=== PATIENT | female | born 1945 | race American Indian/Alaskan Native ===

== ENCOUNTER 2023-07-11 12:03 | Outpatient (CLI) | payer OTHER | END 2023-07-11 12:10 | disposition home or self-care (01) | LOC: RAD 12:03 | PROVIDERS: ATTEND General Practice | DX: M25.561 Pain in right knee (principal); M25.562 Pain in left knee; E11.8 Type 2 diabetes mellitus with unspecified complications; M25.571 Pain in right ankle and joints of right foot; M25.572 Pain in left ankle and joints of left foot; B20 Human immunodeficiency virus [HIV] disease; M25.551 Pain in right hip; M25.552 Pain in left hip ==

== ENCOUNTER 2024-11-01 14:21 | Inpatient (IN) | payer OTHER ==
[~2024-11-01] VITALS: Ht 157.5 cm; Wt 86.2 kg
[2024-11-01] MEDS ORDERED: METFORMIN HCL1000 M2 PO (14:45)
[2024-11-01] MEDS ORDERED: TRIUMEQ TABLET1 EACH PO (14:45)
[2024-11-01] MEDS ORDERED: LOSARTAN POTAS100 MG PO (14:45)
--- NOTE | 2024-11-01 14:45 | NUR ---
PTE ALERTA Y CON PERIODOS DE DESORIENTACION EN COMPANIA DE PARAMEDICOS Y FAMILIAR QUIEN REFIERE TRAER A PTE POR RETENCION URINARIA.
[2024-11-01] MEDS ORDERED: 0.9 % SODIUM CHLORIDE 1,000 ML IV SCH (17:00)
[2024-11-01] MEDS ORDERED: PIPERACILLIN/TAZOBACTAM SODIUM 3.375 GM VIAL IV ONE (17:00)
--- NOTE | 2024-11-01 18:00 | NUR ---
SE EDUCA A PTE SOBRE TX MEDICO, SE JOEY MUESTRAS DE LABORATORIO UTILIZANDO MEDIDAS ASEPTICAS. SE COLOCA H/L MIGUEL DE EDEMA. SE CATETERIZA A PTE UTILIZANDO MEDIDAS ASEPTICAS Y ESTERILES.
[2024-11-01 18:15] LABS: URINE APPEARANCE Turbid; URINE BILIRRUBIN Small (NEGATIVE); URINE BLOOD Large; URINE COLOR Dark Yellow; URINE GLUCOSE Negative (NEGATIVE); URINE KETONE Trace (NEGATIVE); URINE LEUKOCYTE Large; URINE NITRATE Negative
[2024-11-01] MEDS ORDERED: KETOROLAC TROMETHAMINE 30 MG VIAL IV ONE (18:15)
[2024-11-01 18:16] LABS: URINE CAST 9.23 uL (0.0-1.40); URINE EPITHELIAL CELLS 90.9 uL (0.0-38.8); URINE RBC 570.9 uL (0.0-20.8)
[2024-11-01 18:37] LABS: URINE BACTERIA > 9821.5 uL (0.0-1933); URINE PROTEIN 300 (NEGATIVE); URINE WBC > 5548.3 uL (0.0-23.2)
[2024-11-01 19:23] LABS: BASO % 0.2 % (0.1-1.2); EOS # 0.04 (0.04-0.54); EOS % 0.2 % (0.7-7.0); HEMOGLOBIN 9.4 g/dL (11.2-15.7); LYMPH # 0.79 (1.18-3.74); LYMPH % 3.6 % (19.3-53.1); MONO % 8.1 % (4.7-12.5); NEUT # 17.11 (1.56-6.13); NEUT % 77.4 % (34.0-71.1); RED BLOOD COUNT 3.24 M/uL (3.93-5.22); RED CELL DISTRIBUTION WIDTH 14.5 % (11.6-14.4)
[2024-11-01 19:31] LABS: HEMATOCRIT 26.9 % (34.1-44.9); PLATELET COUNT 105 K/uL (163-369)
[2024-11-01 19:46] LABS: ALBUMIN 2.6 gm/dL (3.4-5.0); BILIRUBIN TOTAL 0.9 mg/dL (0.3-1.2); CALCIUM 8.5 mg/dL (8.5-10.1); CREATININE SERUM 2.01 mg/dL (0.55-1.02); GFR 23.83; POTASSIUM 3.56 mEq/L (3.5-5.1); TOTAL PROTEIN 6.6 gm/dL (6.4-8.2)
[2024-11-02] MEDS ORDERED: TAMSULOSIN HCL 0.4 MG CAP PO SCH (00:09)
[2024-11-02] MEDS ORDERED: ACETAMINOPHEN 500 MG GEL..CAP PO PRN (00:15)
[2024-11-02] MEDS ORDERED: DEXTROSE 50 % IN WATER 0.5 G/ML VIAL IV PRN (00:15)
[2024-11-02] MEDS ORDERED: 0.9 % SODIUM CHLORIDE 1,000 ML IV SCH (00:15)
[2024-11-02] MEDS ORDERED: INSULIN LISPRO 1,000 UNIT/10 ML UNITS SUBCUTANEO PRN (00:15)
[2024-11-02] MEDS ORDERED: ONDANSETRON HCL 4 MG in 0.9 % SODIUM CHLORIDE 50 ML IV PRN (00:15)
[2024-11-02] MEDS ORDERED: TAMSULOSIN HCL 0.4 MG CAP PO ONE (04:17)
[2024-11-02] MEDS ORDERED: PIPERACILLIN/TAZOBACTAM SODIUM 3.375 GM VIAL IV ONE (04:18)
[2024-11-02 05:05] VITALS: BP 95/64; O2SAT 98
[2024-11-02 05:21] LABS: INR 1.14; PARTIAL THROMBOPLASTIN TIME 29.9 SECONDS (22.0-34.0); PROTHROMBIN TIME 12.3 SECONDS (9.0-11.5)
[2024-11-02] MEDS ORDERED: PIPERACILLIN/TAZOBACTAM SODIUM 3.375 GM in DEXTROSE 5 % IN WATER 100 ML IV SCH (06:00)
[2024-11-02] MEDS ORDERED: LOSARTAN POTASSIUM 50 MG TABLET PO SCH (09:00)
[2024-11-02] MEDS ORDERED: FAMOTIDINE/PF 20 MG in 0.9 % SODIUM CHLORIDE 8 ML IV PUSH SCH (09:00)
[2024-11-02] MEDS ORDERED: PANTOPRAZOLE SODIUM 40 MG/VIAL VIAL IV PUSH SCH (09:57)
[2024-11-02] MEDS ORDERED: MEROPENEM 1,000 MG in 0.9 % SODIUM CHLORIDE 100 ML IV SCH (10:00)
[2024-11-02] MEDS ORDERED: NOREPINEPHRINE BITARTRATE 8 MG in DEXTROSE 5 % IN WATER 250 ML IV SCH (10:00)
[2024-11-02] MEDS ORDERED: NOREPINEPHRINE BITARTRATE 1 MG/ML AMPUL IV ONE (10:27)
[2024-11-02 15:52] VITALS: BP 125/69; O2SAT 96
[2024-11-02 23:00] VITALS: BP 145/77; O2SAT 99
[2024-11-03] VITALS (9 sets, daily range): BP systolic 122–157; BP diastolic 57–77; O2SAT 95–100
[2024-11-03] MEDS ORDERED: MEROPENEM 500 MG in 0.9 % SODIUM CHLORIDE 50 ML IV SCH ×2 (05:00→17:00)
[2024-11-03 07:01] LABS: BASO % 0.3 % (0.1-1.2); EOS # 0.11 (0.04-0.54); EOS % 0.9 % (0.7-7.0); HEMATOCRIT 28.1 % (34.1-44.9); HEMOGLOBIN 9.4 g/dL (11.2-15.7); LYMPH # 0.91 (1.18-3.74); LYMPH % 7.3 % (19.3-53.1); MEAN CORPUSCULAR HEMOGLOBIN 28.1 pg (25.6-32.2); MONO # 0.78 (0.24-0.82); MONO % 6.3 % (4.7-12.5); NEUT # 10.57 (1.56-6.13); NEUT % 84.7 % (34.0-71.1); PLATELET COUNT 141 K/uL (163-369); RED BLOOD COUNT 3.34 M/uL (3.93-5.22); RED CELL DISTRIBUTION WIDTH 14.9 % (11.6-14.4)
[2024-11-03 07:47] LABS: ALBUMIN 2.2 gm/dL (3.4-5.0); BILIRUBIN TOTAL 0.44 mg/dL (0.3-1.2); CALCIUM 8.7 mg/dL (8.5-10.1); CREATININE SERUM 1.02 mg/dL (0.55-1.02); GFR 52.14; GLOBULINA 4.3 G/DL (2.4-3.5); MAGNESIUM 1.9 mg/dL (1.8-2.4); PHOSPHOROUS 3.1 mg/dL (2.5-4.9); POTASSIUM 3.8 mEq/L (3.5-5.1); TOTAL PROTEIN 6.5 gm/dL (6.4-8.2)
[2024-11-03 07:48] LABS: C-REACTIVE PROTEIN 15.1 MG/DL (0.00-0.29)
[2024-11-03 13:32] LABS: PROCALCITONIN 8.8 ng/ml (0.020-0.080)
[2024-11-03 14:34] LABS: CORTISOL 19.59 ug/dl
[2024-11-03] MEDS ORDERED: [UNRECOGNIZED DRUG - OTHER] PO SCH (15:49)
[2024-11-03] MEDS ORDERED: DOLUTEGRAVIR PO SCH (17:00)
[2024-11-03] MEDS ORDERED: LAMIVUDI PO SCH (17:00)
[2024-11-03] MEDS ORDERED: ABACAVIR PO SCH (17:00)
[2024-11-04 00:40] VITALS: BP 123/73; O2SAT 96
[2024-11-04 01:20] VITALS: O2SAT 100
[2024-11-04 04:35] VITALS: O2SAT 99
[2024-11-04 06:58] LABS: PH,URINE 5.5 (5.0-8.0); URINE APPEARANCE Turbid; URINE BILIRRUBIN Negative (NEGATIVE); URINE BLOOD Moderate; URINE COLOR Dark Yellow; URINE GLUCOSE Negative (NEGATIVE); URINE KETONE Trace (NEGATIVE); URINE LEUKOCYTE Large; URINE NITRATE Negative; URINE PROTEIN 30 (NEGATIVE)
[2024-11-04 07:01] LABS: URINE BACTERIA 4294.9 uL (0.0-1933); URINE CAST 6.62 uL (0.0-1.40); URINE EPITHELIAL CELLS 32.6 uL (0.0-38.8); URINE RBC 104.5 uL (0.0-20.8); URINE WBC 1640.9 uL (0.0-23.2)
[2024-11-04 07:16] LABS: URINE CRYSTALS FEW /HPF
[2024-11-04 08:08] VITALS: BP 121/71; O2SAT 98
[2024-11-04 09:02] VITALS: O2SAT 97
[2024-11-04 17:44] VITALS: BP 117/77; O2SAT 97
[2024-11-04] MEDS ORDERED: PIPERACILLIN/TAZOBACTAM SODIUM 3.375 GM in DEXTROSE 5 % IN WATER 100 ML IV SCH (18:00)
[2024-11-05] VITALS: BP 129/77; O2SAT 96
[2024-11-05 06:56] LABS: BASO % 0.5 % (0.1-1.2); EOS % 3.2 % (0.7-7.0); HEMATOCRIT 27.2 % (34.1-44.9); HEMOGLOBIN 9.3 g/dL (11.2-15.7); LYMPH # 1.37 (1.18-3.74); LYMPH % 14.8 % (19.3-53.1); MEAN CORPUSCULAR HEMOGLOBIN 28.8 pg (25.6-32.2); MONO # 0.94 (0.24-0.82); MONO % 10.2 % (4.7-12.5); NEUT # 6.48 (1.56-6.13); NEUT % 70.2 % (34.0-71.1); PLATELET COUNT 154 K/uL (163-369); RED BLOOD COUNT 3.23 M/uL (3.93-5.22); RED CELL DISTRIBUTION WIDTH 15.2 % (11.6-14.4)
[2024-11-05 07:19] LABS: CALCIUM 8.1 mg/dL (8.5-10.1); CREATININE SERUM 0.71 mg/dL (0.55-1.02); GFR 79.2; MAGNESIUM 1.5 mg/dL (1.8-2.4); PHOSPHOROUS 2.6 mg/dL (2.5-4.9); POTASSIUM 3.86 mEq/L (3.5-5.1)
[2024-11-05 07:25] LABS: ALBUMIN 2.1 gm/dL (3.4-5.0); BILIRUBIN TOTAL 0.75 mg/dL (0.3-1.2); CALCIUM 8.1 mg/dL (8.5-10.1); CREATININE SERUM 0.68 mg/dL (0.55-1.02); GFR 83.25; GLOBULINA 3.6 G/DL (2.4-3.5); POTASSIUM 3.8 mEq/L (3.5-5.1); TOTAL PROTEIN 5.7 gm/dL (6.4-8.2)
[2024-11-05 08:00] VITALS: BP 143/79; O2SAT 96
[2024-11-05] MEDS ORDERED: MAGNESIUM SULFATE IN WATER 50 ML IV NR (13:40)
[2024-11-05 16:35] VITALS: BP 139/76
[2024-11-06 01:40] VITALS: BP 131/71; O2SAT 94
[2024-11-06 07:52] LABS: ALBUMIN 2.1 gm/dL (3.4-5.0); BILIRUBIN TOTAL 0.64 mg/dL (0.3-1.2); CALCIUM 8.2 mg/dL (8.5-10.1); CREATININE SERUM 0.72 mg/dL (0.55-1.02); GFR 77.94; GLOBULINA 3.8 G/DL (2.4-3.5); MAGNESIUM 1.6 mg/dL (1.8-2.4); POTASSIUM 3.69 mEq/L (3.5-5.1); TOTAL PROTEIN 5.9 gm/dL (6.4-8.2)
[2024-11-06 08:44] VITALS: BP 149/80; O2SAT 97
[2024-11-06] MEDS ORDERED: MAGNESIUM SULFATE IN WATER 50 ML IV NR (12:20)
[2024-11-06 16:46] VITALS: BP 125/66
[2024-11-07 02:11] VITALS: BP 136/76; O2SAT 95
[2024-11-07 08:43] VITALS: BP 138/68; O2SAT 96
[2024-11-07 16:03] VITALS: BP 144/82
[2024-11-08 01:09] VITALS: BP 149/77; O2SAT 95
[2024-11-08 06:50] LABS: BASO % 0.7 % (0.1-1.2); EOS # 0.31 (0.04-0.54); EOS % 4.1 % (0.7-7.0); HEMATOCRIT 27.1 % (34.1-44.9); LYMPH # 1.28 (1.18-3.74); MEAN CORPUSCULAR HEMOGLOBIN 28.3 pg (25.6-32.2); MONO # 0.64 (0.24-0.82); MONO % 8.5 % (4.7-12.5); PLATELET COUNT 238 K/uL (163-369); RED BLOOD COUNT 3.18 M/uL (3.93-5.22)
[2024-11-08 07:50] VITALS: BP 156/70
[2024-11-08 07:55] LABS: ALBUMIN 1.9 gm/dL (3.4-5.0); BILIRUBIN TOTAL 0.51 mg/dL (0.3-1.2); CALCIUM 8.1 mg/dL (8.5-10.1); CREATININE SERUM 0.58 mg/dL (0.55-1.02); GFR 100.02; GLOBULINA 3.6 G/DL (2.4-3.5); MAGNESIUM 1.7 mg/dL (1.8-2.4); POTASSIUM 3.78 mEq/L (3.5-5.1); TOTAL PROTEIN 5.5 gm/dL (6.4-8.2)
[2024-11-08] MEDS ORDERED: DEXTROSE 5 % IN WATER 1,000 ML IV SCH (18:45)
[2024-11-08] MEDS ORDERED: Cyanocobalamin/Mecobalamin 1 TAB.SL SL NR (19:45)
[2024-11-08] MEDS ORDERED: VITAMIN B COMPLEX 1 EACH PO NR (19:45)
[2024-11-08] MEDS ORDERED: MAGNESIUM SULFATE/D5W 100 ML IV NR (19:45)
[2024-11-08] MEDS ORDERED: SOD FERRIC GLUC COMPLX/SUCROSE 62.5 MG/5 ML AMPUL IV ONE ×2 (20:18→20:20)
[2024-11-08] MEDS ORDERED: SOD FERRIC GLUC COMPLX/SUCROSE 125 MG in 0.9 % SODIUM CHLORIDE 100 ML IV SCH (21:00)
[2024-11-09] MEDS ORDERED: SODIUM CL 0.9% 100 ML IV.SOLN IV ONE (00:12)
[2024-11-09 00:30] VITALS: BP 158/75
[2024-11-09 04:57] LABS: HEMATOCRIT 27.1 % (34.1-44.9); HEMOGLOBIN 8.9 g/dL (11.2-15.7); MEAN CORPUSCULAR HEMOGLOBIN 27.5 pg (25.6-32.2); RED BLOOD COUNT 3.24 M/uL (3.93-5.22)
[2024-11-09 04:58] LABS: BASO % 0.6 % (0.1-1.2); EOS % 4.6 % (0.7-7.0); LYMPH # 1.36 (1.18-3.74); MONO % 6.6 % (4.7-12.5); NEUT # 6.06 (1.56-6.13); NEUT % 71.1 % (34.0-71.1); PLATELET COUNT 262 K/uL (163-369)
[2024-11-09 04:59] LABS: EOS # 0.39 (0.04-0.54); MONO # 0.56 (0.24-0.82)
[2024-11-09 05:34] LABS: ALBUMIN 1.9 gm/dL (3.4-5.0); BILIRUBIN TOTAL 0.33 mg/dL (0.3-1.2); CALCIUM 8.2 mg/dL (8.5-10.1); CREATININE SERUM 0.59 mg/dL (0.55-1.02); GFR 98.07; GLOBULINA 3.9 G/DL (2.4-3.5); MAGNESIUM 1.8 mg/dL (1.8-2.4); PHOSPHOROUS 2.7 mg/dL (2.5-4.9); POTASSIUM 3.65 mEq/L (3.5-5.1); TOTAL PROTEIN 5.8 gm/dL (6.4-8.2)
[2024-11-09 08:14] VITALS: BP 146/78
[2024-11-09] MEDS ORDERED: Cyanocobalamin/Mecobalamin 1 TAB.SL SL SCH (09:00)
[2024-11-09] MEDS ORDERED: VITAMIN B COMPLEX 1 EACH PO SCH (09:00)
[2024-11-09] MEDS ORDERED: FUROsemide 20 MG/2 ML VIAL IV SCH (13:15)
[2024-11-09] MEDS ORDERED: MAGNESIUM HYDROXIDE 30 ML BLIST.PACK PO NR (13:15)
[2024-11-09] MEDS ORDERED: LACTULOSE 20 G/30 ML BLIST.PACK PO NR (13:30)
[2024-11-09] MEDS ORDERED: MINERAL OIL 30 ML BLIST.PACK PO NR (13:30)
[2024-11-09 16:00] VITALS: BP 153/78; O2SAT 97
[2024-11-09] MEDS ORDERED: SOD FERRIC GLUC COMPLX/SUCROSE 62.5 MG in 0.9 % SODIUM CHLORIDE 50 ML IV SCH (21:00)
[2024-11-09 21:33] LABS: ob NEGATIVE (NEGATIVE)
[2024-11-10 00:37] VITALS: BP 138/78; O2SAT 98
[2024-11-10 08:00] VITALS: BP 127/63; O2SAT 94
[2024-11-10 16:55] VITALS: BP 141/87; O2SAT 98
[2024-11-10] MEDS ORDERED: PIPERACILLIN/TAZOBACTAM SODIUM 3.375 GM VIAL IV ONE (17:22)
[2024-11-10] MEDS ORDERED: SOD FERRIC GLUC COMPLX/SUCROSE 62.5 MG/5 ML AMPUL IV ONE (17:22)
[2024-11-11 00:34] VITALS: BP 145/66
[2024-11-11 06:53] LABS: BASO % 0.5 % (0.1-1.2); EOS # 0.23 (0.04-0.54); EOS % 2.6 % (0.7-7.0); HEMATOCRIT 34.8 % (34.1-44.9); HEMOGLOBIN 11.8 g/dL (11.2-15.7); LYMPH # 1.09 (1.18-3.74); LYMPH % 12.4 % (19.3-53.1); MEAN CORPUSCULAR HEMOGLOBIN 28.6 pg (25.6-32.2); MONO # 0.62 (0.24-0.82); MONO % 7.1 % (4.7-12.5); NEUT # 6.72 (1.56-6.13); NEUT % 76.5 % (34.0-71.1); PLATELET COUNT 270 K/uL (163-369); RED BLOOD COUNT 4.12 M/uL (3.93-5.22); RED CELL DISTRIBUTION WIDTH 15.4 % (11.6-14.4)
[2024-11-11 08:00] VITALS: BP 162/74; O2SAT 96
[2024-11-11 16:28] VITALS: BP 170/79; O2SAT 98
== END 2024-11-11 21:12 | disposition home or self-care (01) | DRG 871 ==
LOC: ER 14:21 → MEDI 11-02 00:11 → ICU-2 11-02 00:11 → SEC-K 11-02 00:11 → ICU-2 11-02 13:56 → SEC-K 11-03 12:05 → MEDI 11-03 16:30
PROVIDERS: General Practice; Internal Medicine; Internal Medicine Infectious Disease; ADMIT Internal Medicine; ATTEND Internal Medicine
PROC: BW21ZZZ Computerized Tomography (CT Scan) of Abdomen and Pelvis (ICD-10-PCS; principal; 2024-11-01)
PROC: 4A12X4Z Monitoring of Cardiac Electrical Activity, External Approach (ICD-10-PCS; 2024-11-03)
PROC: BT4JZZZ Ultrasonography of Kidneys and Bladder (ICD-10-PCS; 2024-11-04)
PROC: 30233N1 Transfusion of Nonautologous Red Blood Cells into Peripheral Vein, Percutaneous Approach (ICD-10-PCS; 2024-11-10)
DX: A41.9 Sepsis, unspecified organism (principal); R65.21 Severe sepsis with septic shock; N39.0 Urinary tract infection, site not specified; N17.8 Other acute kidney failure; I10 Essential (primary) hypertension; E11.9 Type 2 diabetes mellitus without complications; Z79.4 Long term (current) use of insulin

== ENCOUNTER 2025-01-24 13:46 | Emergency (ER) | payer OTHER ==
[~2025-01-24] VITALS: Ht 160 cm; Wt 86.2 kg
[~2025-01-24 13:46] MED LIST: LOSARTAN POTAS100 MG PO; METFORMIN HCL1000 M2 PO; TRIUMEQ TABLET1 EACH PO
[2025-01-24] MEDS ORDERED: FAMOTIDINE/PF 20 MG in 0.9 % SODIUM CHLORIDE 8 ML IV PUSH STA (16:29)
[2025-01-24] MEDS ORDERED: 0.9 % SODIUM CHLORIDE 1,000 ML IV SCH (16:30)
[2025-01-24] MEDS ORDERED: KETOROLAC TROMETHAMINE 30 MG VIAL IV ONE (16:30)
[2025-01-24] MEDS ORDERED: ONDANSETRON HCL 2 MG/ML VIAL IV ONE (16:30)
[2025-01-24 17:13] LABS: BASO % 0.2 % (0.1-1.2); EOS # 0.03 (0.04-0.54); EOS % 0.1 % (0.7-7.0); LYMPH # 0.70 (1.18-3.74); LYMPH % 3.4 % (19.3-53.1); MEAN PLATELET VOLUME 9.40 fl (9.4-12.4); MONO # 0.76 (0.24-0.82); MONO % 3.7 % (4.7-12.5); NEUT # 18.68 (1.56-6.13); NEUT % 91.2 % (34.0-71.1); RED CELL DISTRIBUTION WIDTH 15.9 % (11.6-14.4)
[2025-01-24 17:28] LABS: URINE APPEARANCE Turbid; URINE BILIRRUBIN Small (NEGATIVE); URINE BLOOD Large; URINE COLOR Dark Yellow; URINE GLUCOSE Negative (NEGATIVE); URINE KETONE 15 (NEGATIVE); URINE LEUKOCYTE Moderate; URINE NITRATE Negative; URINE UROBILINOGEN 1.0 E.U./dl
[2025-01-24 17:31] LABS: URINE CAST 2.53 uL (0.0-1.40); URINE EPITHELIAL CELLS 55.8 uL (0.0-38.8); URINE RBC 1507.5 uL (0.0-20.8); URINE WBC 719.6 uL (0.0-23.2)
[2025-01-24 17:35] LABS: COVID-19 AG NEGATIVE (NEGATIVE)
[2025-01-24 17:48] LABS: ALT/SGPT 43.0 U/L (12-78); AST/SGOT 46.0 U/L (15-37); BILIRUBIN TOTAL 0.49 mg/dL (0.3-1.2); BUN CREA RATIO 22.0 (7.0-25.0); CREATININE SERUM 1.07 mg/dL (0.55-1.02); GFR 49.34; GLOBULINA 4.4 G/DL (2.4-3.5); GLUCOSE FASTING 131.0 mg/dL (65-100); LDH 254.0 U/L (84-246); OSMOLALITY SERUM 287.0 MOSM/KG (275-295); PHOSPHOKINASE CREATININE 35.0 U/L (26-192)
[2025-01-24 17:49] LABS: URINE BACTERIA 9821.5 uL (0.0-1933); URINE PROTEIN 300 (NEGATIVE)
[2025-01-24] MEDS ORDERED: CEFTRIAXONE SODIUM 2,000 MG VIAL IV ONE (18:15)
== END 2025-01-24 20:35 | disposition designated cancer center or children's hospital (05) ==
LOC: ER 13:46
PROVIDERS: General Practice
DX: N20.1 Calculus of ureter (principal); R10.9 Unspecified abdominal pain; R11.2 Nausea with vomiting, unspecified; Z20.822 Contact with and (suspected) exposure to COVID-19

== ENCOUNTER 2025-02-13 14:33 | Emergency (ER) | payer OTHER ==
[~2025-02-13] VITALS: Ht 160 cm; Wt 86.2 kg
[2025-02-13] MEDS ORDERED: VITACEL TABLET1 EACH PO (14:48)
[2025-02-13] MEDS ORDERED: METFORMIN HCL500 M3 PO (14:48)
[2025-02-13] MEDS ORDERED: COZAAR100 MG PO (14:48)
[2025-02-13] MEDS ORDERED: OSTERA TABLET1 EACH PO (14:49)
[2025-02-13] MEDS ORDERED: OMEGA-31000 MG PO (14:49)
[2025-02-13] MEDS ORDERED: ONDANSETRON HCL 2 MG/ML VIAL IV STA (16:21)
[2025-02-13] MEDS ORDERED: FAMOTIDINE/PF 20 MG/2 ML VIAL IV STA (16:21)
[2025-02-13] MEDS ORDERED: KETOROLAC TROMETHAMINE 30 MG VIAL IM STA (16:22)
[2025-02-13 18:09] LABS: BASO % 0.4 % (0.1-1.2); EOS # 0.01 (0.04-0.54); EOS % 0.1 % (0.7-7.0); LYMPH # 1.29 (1.18-3.74); LYMPH % 13.1 % (19.3-53.1); MEAN PLATELET VOLUME 9.30 fl (9.4-12.4); MONO # 0.54 (0.24-0.82); MONO % 5.5 % (4.7-12.5); NEUT # 7.91 (1.56-6.13); NEUT % 80.1 % (34.0-71.1); RED CELL DISTRIBUTION WIDTH 15.1 % (11.6-14.4)
[2025-02-13 18:44] LABS: ALT/SGPT 41.0 U/L (12-78); AST/SGOT 24.0 U/L (15-37); BILIRUBIN TOTAL 0.29 mg/dL (0.3-1.2); BUN CREA RATIO 24.0 (7.0-25.0); CREATININE SERUM 1.12 mg/dL (0.55-1.02); GFR 46.81; GLOBULINA 4.8 G/DL (2.4-3.5); GLUCOSE FASTING 131.0 mg/dL (65-100); OSMOLALITY SERUM 283.0 MOSM/KG (275-295)
[2025-02-13 20:20] LABS: URINE APPEARANCE Cloudy; URINE BILIRRUBIN Small (NEGATIVE); URINE BLOOD Negative; URINE COLOR Dark Yellow; URINE GLUCOSE Negative (NEGATIVE); URINE KETONE 15 (NEGATIVE); URINE LEUKOCYTE Small; URINE NITRATE Negative; URINE UROBILINOGEN 1.0 E.U./dl
[2025-02-13 20:21] LABS: URINE EPITHELIAL CELLS 77.2 uL (0.0-38.8); URINE RBC 224.8 uL (0.0-20.8); URINE WBC 79.5 uL (0.0-23.2)
[2025-02-13 20:49] LABS: TYPE CELLS SQUAMOUS; URINE BACTERIA > 9821.5 uL (0.0-1933); URINE CAST 1.31 uL (0.0-1.40); URINE CRYSTALS FEW /HPF; URINE PROTEIN 100 (NEGATIVE)
== END 2025-02-14 14:42 | disposition home or self-care (01) ==
LOC: ER 14:33
PROVIDERS: General Practice
DX: K29.70 Gastritis, unspecified, without bleeding (principal); R11.10 Vomiting, unspecified; I10 Essential (primary) hypertension